=== PATIENT | female | born 1955 | race Caucasian/White ===

== ENCOUNTER 2016-11-09 18:59 | Emergency (ER) | payer OTHER ==
[2016-11-09] MEDS ORDERED: METOCLOPRAMIDE HCL 5 MG/ML VIAL IV ONE (19:32)
[2016-11-09] MEDS ORDERED: NORMAL SALINE 1,000 ML IV ONE (19:32)
[2016-11-09] MEDS ORDERED: METOCLOPRAMIDE HCL 5 MG/ML VIAL ONE (19:44)
[2016-11-09 19:49] LABS: Hematocrit 28.8 % (37.0-47.0); Hemoglobin 9.3 gm/dL (12.5-16.0); Mean Cell Volume 84.5 fl (78-100); Mean Corpuscular Hemoglobin 27.3 pg (27-31); Mean Corpuscular Hgb Conc 32.3 g/dl (32-36); Mean Platelet Volume 9.3 fl (6.0-9.5); Platelet Count 335 K/mm3 (150-450); Red Blood Count 3.41 M/mm3 (4.2-5.4); Red Cell Distribution Width 13.5 % (11.5-14.0); White Blood Count 10.7 K/mm3 (4.0-10.5)
[2016-11-09 19:51] LABS: Total Cells Counted 100
[2016-11-09 20:07] LABS: Albumin * 3.1 gm/dl (3.4-5.0); Anion Gap 15.3 mmol/L (6.8-13.8); BUN/Creatinine Ratio 12.2 (9.0-21.6); Bilirubin, Total 0.4 mg/dL (0.0-1.1); Calcium * 8.6 mg/dL (7.9-10.9); Carbon Dioxide 21.4 mmol/L (24-32.6); Potassium 3.7 mmol/L (3.4-4.6); Total Protein 6.8 gm/dL (6.2-8.2)
[2016-11-09 20:15] LABS: Band 14 % (0-2.0); Eosinophil 3 % (0-3); Lymphocyte 33 % (20-51); Monocyte 3 % (0-9); Neutrophil 47 % (42-75); Platelet Estimate Normal (NORMAL)
[2016-11-09 20:16] LABS: RBC Morphology Normal (NORMAL)
[2016-11-09 20:20] LABS: CRP 25.5 mg/dL (0.0-0.9)
--- NOTE | 2016-11-09 20:37 | ERNOTE ---
<Magdalena Andrade - Last Filed: 11/09/16 21:43> Abdominal HPI - Narrative Date of Service: 11/09/16 - General Chief Complaint: General Assessment Time Seen by Provider: 11/09/16 19:16 Source: patient, RN notes reviewed Exam Limitations: no limitations - Immun/Allergies/Home Medications Immunizatons: IMMUNIZATION HX Immunizations Up to Date Yes History of Influenza Vaccine No Hx Pneumococcal Vaccination No Allergies/Adverse Reactions: Allergies albuterol Allergy (Severe, Verified 11/09/16 19:13) Swelling of Throat Allergy to Ventolin naproxen [From Naprosyn] Allergy (Intermediate, Verified 11/09/16 19:13) Swelling (Other) Swelling of hands, itchy ondansetron HCl [From Zofran (as hydrochloride)] Allergy (Intermediate, Verified 11/09/16 19:13) Swelling (Other) meperidine HCl [From Demerol] Allergy (Mild, Verified 11/09/16 19:13) Itching Home Medications: HOME MEDICATIONS ALPRAZolam [Xanax] 0.5 mg PO TID PRN 08/28/15 [Last Taken Unknown] Furosemide [Lasix] 80 mg PO DAILY 08/28/15 [Last Taken Unknown] Metoprolol Tartrate 100 mg PO BIDWM 08/28/15 [Last Taken Unknown] Omeprazole [Prilosec] 40 mg PO DAILY 08/28/15 [Last Taken Unknown] Potassium Chloride [K-Dur] 20 meq PO BID 08/28/15 [Last Taken Unknown] amLODIPine BESYLATE [Norvasc] 10 mg PO DAILY 08/28/15 [Last Taken Unknown] FLUoxetine HCL [Prozac] 20 mg PO DAILY 11/20/15 [Last Taken Unknown] Levothyroxine Sodium [Synthroid] 100 mcg PO DAILY@0700 11/20/15 [Last Taken Unknown] Dicyclomine HCl [Bentyl] 10 mg PO TID PRN #7 capsule 11/09/16 [Last Taken Unknown] - History of Present Illness Narrative: 61 y/o female ambulatory to the ED for diarrhea that began 2 days ago. She has also had cramping, bloating and nausea but no vomiting. She states that if she attempted to eat solid food that she would likely vomit. She has been taking Immodium since yesterday without improvement in the diarrhea. She denies having any blood in her stools. She denies any sick contacts. She has not been on an antibiotic recently. She has had diverticulitis in the past and reports that the symptoms were the same. Date (Duration): 11/07/16 Quality: moderate, cramping Activities at Onset: none Prior Abdominal Problems: Present: similar symptoms Prior Treatment: Absent: recently seen, treated by physician, currently on antibiotics Review of Systems - Review of Systems Constitutional: Present: fatigue, malaise. Absent: fever, chills EYE: Present: no symptoms reported ENT: Present: no symptoms reported Respiratory: Absent: shortness of breath, cough Cardiology: Absent: chest pain, syncope Gastrointestinal/Abdominal: Present: nausea, diarrhea, abdominal pain, eating less, drinking less. Absent: vomiting Genitourinary: Absent: dysuria, hematuria, decreased urinary output Musculoskeletal: Absent: back pain, joint pain Skin: Absent: rash, lesions Neurological: Absent: headache, dizziness/light-headedness Endocrine: Present: no symptoms reported Hematologic/Lymphatic: Absent: easy bruising, easy bleeding Psych: Present: no symptoms reported - Patient's Past Medical History Patient History - Medical: Anxiety, Depression, GERD, Hypothyroidism, Other - Diverticulitis Patient History - Cardiac/Respiratory: Asthma, Hypertension Patient History - Cancer: No Hx of Cancer Patient History - Surgical Procedures: Cholecystectomy, Colonoscopy, Hysterectomy, Total Knee Replacement, T & A, Other Patient History - Other: None LMP (females 10-50): hysterectomy - Family History Mother Family History - Medical: Family History - Cardiac/Respiratory: CVA/Stroke Brother Family History - Medical: Seizures Father Family History - Medical: Cataracts - Social History Living Situations: home Abuse History: No History of abuse Psych History: Hx of Anxiety, Hx of Depression Smoking Status: Never smoker Do you dip or chew tobacco: No Alcohol Use: none Drug Use: benzodiazepine - Immunizations Immunizations Up to Date: Yes Hx Pneumococcal Vaccination: No History of Influenza Vaccine: No Physical Exam - Physical Exam General Appearance: Present: alert, obese, other - appears to not feel well Neck: Present: normal inspection, nontender, supple Respiratory: Present: no respiratory distress, normal breath sounds, no accessory muscle use, lungs clear Cardiovascular/Chest: Present: regular rate, rhythm, no murmur, normal peripheral pulses Gastrointestinal/Abdominal: Present: normal bowel sounds, soft, tenderness - moderate diffuse, distended Back Exam: Present: normal inspection, no CVA tenderness Extremity Exam: Present: normal inspection, normal range of motion Neurological Exam: Present: alert, oriented, normal mood/affect, no motor/ sensory deficits Skin Exam: Present: warm/dry, pallor ED Progress - Results and Orders Patient's Lab Results:: I have reviewed the patient's lab results. - Vital Signs Patient's Vital Signs:: I have reviewed the patient's vital signs. Vital Signs: Vital Signs 11/09/16 11/09/16 19:05 19:49 Temperature 36.7 C Pulse Rate 84 78 Respiratory 22 H 20 Rate Blood Pressure 135/72 133/69 O2 Sat by Pulse 96 96 Oximetry - X-Ray X-Ray #1 X-Ray: abdomen Interpretation: Reviewed by me X-ray Comments: FINDINGS: Abdomen Flat W/ Upright *: No subdiaphragmatic free air. No abnormal dilation of large or small bowel. Scattered air-fluid levels are noted within the colonic segments, with colonic bowel wall thickening suggested at the level of the ascending colon/hepatic flexure. Patient has bilateral symmetric probable abdominal wall calcifications, stable. Rounded pelvic calcifications likely phleboliths, stable. Small rounded calcification seen lateral to the lower lumbar spine on the right side, also stable. Osseous structures are intact. Patient has surgical clips in the left upper quadrant. IMPRESSION: 1. Abnormal bowel gas pattern suggestive of colitis. 2. Additional comments are as above. Electronically signed by Sharlene Perez M.D.. - Progress/Reassessment Chief Complaint: General Assessment Progress:: Unchanged Progress Note-Subjective: 11/09/16 21:44 Nausea did not improve with Reglan but she did get some relief with Phenergan, tolerating oral contrast for abdominal CT well. Pain improved with one dose of morphine. - Transfer of Care Physician Sign Out: Magdalena Andrade Receiving Physician: Ananth Francois Pending Results: CT/MRI results Expected Disposition: Discharge Departure - Departure Clinical Impression: Diarrhea Qualifiers: Diarrhea type: unspecified type Qualified Code(s): R19.7 - Diarrhea, unspecified Disposition: Home self-care Condition: Good Instructions: Diarrhea, Adult, [id number] Additional Instructions: use the dicyclomine as needed for severe abdominal cramping. Drink plenty of fluids to stay hydrated. See your primary care doctor if not improving Prescriptions: Dicyclomine HCl [Bentyl] 10 mg PO TID PRN #7 capsule PRN Reason: Pain <Ananth Francois - Last Filed: 11/15/16 22:52> Abdominal HPI - Immun/Allergies/Home Medications Immunizatons: IMMUNIZATION HX Immunizations Up to Date Yes History of Influenza Vaccine No Hx Pneumococcal Vaccination No ED Progress - Vital Signs Vital Signs: Vital Signs 11/09/16 11/09/16 11/09/16 19:05 19:49 20:47 Temperature 36.7 C Pulse Rate 84 78 75 Respiratory 22 H 20 18 Rate Blood Pressure 135/72 133/69 139/69 O2 Sat by Pulse 96 96 96 Oximetry 11/09/16 11/09/16 11/09/16 21:42 22:50 23:45 Temperature Pulse Rate 80 72 82 Respiratory 18 18 18 Rate Blood Pressure 146/72 148/70 136/79 O2 Sat by Pulse 96 97 97 Oximetry - CT/Ultrasound CT/Ultrasound Narrative: CT abd/ pelvis with contrast: 14 mm nodule of the L adrenal gland 3.6 cm cyst of left kidney
[2016-11-09] MEDS ORDERED: DIATRIZOATE MEGLUMINE, SODIUM 30 ML BTL ONE ×2 (20:41→21:45)
[2016-11-09] MEDS ORDERED: DIATRIZOATE MEGLUMINE, SODIUM 30 ML BTL PO ONE ×2 (20:41→21:44)
[2016-11-09] MEDS ORDERED: PROMETHAZINE HCL 25 MG in DEXTROSE 5 % IN WATER 50 ML IV ONE ×2 (20:44)
[2016-11-09] MEDS ORDERED: MORPHINE SULFATE 2 MG/ML DISP.SYRIN IV ONE (20:44)
[2016-11-09] MEDS ORDERED: MORPHINE SULFATE 2 MG/ML DISP.SYRIN ONE (20:46)
[2016-11-09] MEDS ORDERED: diphenhydrAMINE HCL 50 MG/ML VIAL IV ONE (22:42)
[2016-11-09] MEDS ORDERED: diphenhydrAMINE HCL 50 MG/ML VIAL ONE (22:46)
[2016-11-09] MEDS ORDERED: DICYCLOMINE HCL 10 MG CAPSULE PO ONE (23:56)
[2016-11-09] MEDS ORDERED: DICYCLOMINE HCL 20 MG TABLET ONE (23:59)
[2016-11-10 00:18] VITALS: BP 130/73
== END 2016-11-10 00:16 | disposition home or self-care (01) ==
LOC: ER 18:59
DX: R19.7 Diarrhea, unspecified (principal); F41.8 Other specified anxiety disorders; K21.9 Gastro-esophageal reflux disease without esophagitis; E03.9 Hypothyroidism, unspecified; I10 Essential (primary) hypertension

== ENCOUNTER 2020-01-01 11:22 | Inpatient (IN) ==
[2020-01-01] MEDS ORDERED: NORMAL SALINE 1,000 ML IV ONE (12:46)
[2020-01-01] MEDS ORDERED: ALBUTEROL SULFATE/IPRATROPIUM 3 ML NEBU IH ONE (12:48)
[2020-01-01] MEDS ORDERED: METHYLPREDNISOLONE SOD SUCC/PF 125 MG/2 ML VIAL IV ONE (12:53)
[2020-01-01 13:13] LABS: Hematocrit 40.5 % (37.0-47.0); Hemoglobin 13.7 gm/dL (12.5-16.0); Mean Cell Volume 90.4 fl (78-100); Mean Corpuscular Hemoglobin 30.6 pg (27-31); Mean Corpuscular Hgb Conc 33.8 g/dl (32-36); Mean Platelet Volume 9.5 fl (8-12.5); Neutrophil % 60.6 % (42-75.0); Platelet Count 435 K/mm3 (150-450); Red Blood Count 4.48 M/mm3 (4.2-5.4); Red Cell Distribution Width 13.6 % (11.5-14.0); White Blood Count 11.6 K/mm3 (4.0-10.5)
[2020-01-01] MEDS ORDERED: PROMETHAZINE HCL 25 MG TABLET PO ONE (13:15)
[2020-01-01 13:31] LABS: ALT 42 U/L (19-67); AST 82 U/L (0-48); Albumin * 4.8 gm/dl (3.4-5.0); Alkaline Phosphatase * 78 U/L (50-170); Anion Gap 15.6 mmol/L (6.8-13.8); BUN/Creatinine Ratio 6.9 (9.0-21.6); Bilirubin, Total 0.5 mg/dL (0.0-1.1); Blood Urea Nitrogen 8 mg/dL (3-23); Ca. Corrected For Albumin 8.6 mg/dL (8.4-10.2); Calcium * 9.6 mg/dL (7.9-10.9); Carbon Dioxide 23.6 mmol/L (24-32.6); Chloride 85 mmol/L (97-106); Glucose * 132 mg/dL (70-110); Potassium 4.2 mmol/L (3.4-4.6); Total Protein 8.4 gm/dL (6.2-8.2); Troponin I Less than 0.017 ng/mL (0.00-0.10)
[2020-01-01 13:50] LABS: Sodium 120 mmol/L (132-142)
[2020-01-01 14:09] LABS: Urine Bilirubin Negative (NEGATIVE); Urine Blood 25 /ul (NEGATIVE); Urine Ketone Negative (NEGATIVE); Urine Nitrite Negative (NEGATIVE); Urine Protein 30 mg/dL (NEGATIVE); Urine Specific Gravity 1.015 SP.GR. (1.005-1.010); Urine Urobilinogen Normal (NORMAL); Urine pH 7.5 pH (5.0-7.0)
[2020-01-01 14:15] LABS: Urine Appearance Clear (CLEAR); Urine Color Yellow; Urine WBC None Seen /hpf (0-5)
[2020-01-01 14:16] LABS: Urine Bacteria None Seen; Urine RBC 0-5 /hpf (0-5)
--- NOTE | 2020-01-01 14:54 | ERNOTE ---
ENT HPI Date of Service: 01/01/20 Presenting Symptoms: other - sore throat, weakness Time Seen by Provider: 01/01/20 12:26 Source: patient Exam Limitations: no limitations - Immun/Allergies/Home Medications Immunizations: IMMUNIZATION HX Immunizations Up to Date Yes History of Influenza Vaccine No Hx Pneumococcal Vaccination No Allergies/Adverse Reactions: Allergies Allergy/AdvReac Type Severity Reaction Status Date / Time naproxen [From Naprosyn] Allergy Intermediate Swelling Verified 01/01/20 11:24 (Other) ondansetron HCl Allergy Intermediate Swelling Verified 01/01/20 11:24 [From Zofran (as (Other) hydrochloride)] meperidine HCl [From Demerol] Allergy Mild Itching Verified 01/01/20 11:24 Home Medications: HOME MEDICATIONS Omeprazole [Prilosec] 40 mg PO DAILY 08/28/15 [Last Taken Unknown] albuterol sulfate 90 mcg/actuation aerosol inhaler 2 puff IH Q6H PRN 12/14/17 [Last Taken Unknown] furosemide 80 mg tablet 40 mg PO DAILY tab 12/14/17 [Last Taken Unknown] metoprolol tartrate 100 mg tablet 100 mg PO BIDWM #60 tab 03/22/18 [Last Taken Unknown] levothyroxine 150 mcg tablet 150 mcg PO DAILY #30 tab 06/08/18 [Last Taken Unknown] ibuprofen 200 mg tablet 800 mg PO TID-QID PRN tab 06/27/18 [Last Taken Unknown] amlodipine 10 mg tablet See Rx Instructions .ROUTE .COMPLEX #90 unspecified 08/30/18 [Last Taken Unknown] lisinopril 10 mg tablet 10 mg PO DAILY 11/21/18 [Last Taken Unknown] potassium chloride 20 mEq tablet,extended release(part/cryst) See Rx Instructions .ROUTE .COMPLEX #60 unspecified 09/18/19 [Last Taken Unknown] buspirone 15 mg tablet 15 mg PO TID #90 tab 10/21/19 [Last Taken Unknown] zolpidem 10 mg tablet 10 mg PO HS PRN #30 tab 10/21/19 [Last Taken Unknown] propranolol 20 mg tablet 20 mg PO TID PRN #90 tab 11/21/19 [Last Taken Unknown] fluoxetine 20 mg capsule 60 mg PO DAILY #90 cap 12/19/19 [Last Taken Unknown] alprazolam 1 mg tablet 1 mg PO TID PRN #90 tab 12/27/19 [Last Taken Unknown] - History of Present Illness Narrative: patient presents to the ED with several complaints. She has been having ST. This was evaluated with negative strep and Covid test requested. When she went for the Covid test another strep test was positive so ABx started (Z-Arslan?) and Covid testing negative by her report. SHe has had cough, sore throat and now progressive weakness. Decreased appetite. No CP. Occasional low abdominal pains. No focal weaknes, generalized weakness noted. Nausea. Feels fatigued. Severity: Present: moderate ENT Location: Present: throat Prearrival Treatment: Present: no prearrival treatment Modifying Factors - Improves: Reports: nothing Modifying Factors - Worsens: Reports: other - swallowing Associated Symptoms - ENT: Reports: malaise, poor fluid intake. Denies: voice change, drooling, headache, foreign body Prior Treament: Reports: treated by physician. Denies: currently on antibiotics Review of Systems - Review of Systems Constitutional: Present: fatigue, malaise. Absent: fever EYE: Present: no symptoms reported ENT: Present: See HPI Respiratory: Present: See HPI Cardiology: Absent: chest pain Gastrointestinal/Abdominal: Present: See HPI Genitourinary: Absent: dysuria Musculoskeletal: Present: other - no injury Skin: Absent: rash Neurological: Present: See HPI All Other Systems: All systems neg except as marked Medical History (Last Reviewed 01/01/20 @ 14:50 by Tylor Gross MD) Major depression (Chronic) Generalized anxiety disorder (Chronic) Borderline personality disorder (Chronic) Anxiety Onset Date: ~08/01/13 Asthma Onset Date: Unknown Bipolar affective disorder, currently depressed, moderate Onset Date: ~05/07/15 Bipolar disorder Onset Date: ~09/25/14 Borderline personality disorder Onset Date: ~08/01/13 Bronchitis, chronic Onset Date: Unknown GERD (gastroesophageal reflux disease) Onset Date: Unknown Hypertension Onset Date: Unknown Hypothyroidism Onset Date: Unknown Insomnia Onset Date: ~10/08/13 Insomnia due to other mental disorder Onset Date: ~05/07/15 Major depression, recurrent Onset Date: Unknown Major depressive disorder, recurrent episode, moderate Onset Date: ~05/06/16 Nightmares Onset Date: Unknown PTSD (post-traumatic stress disorder) Onset Date: ~09/22/16 Paranoia Onset Date: ~10/03/13 Postsurgical hypothyroidism Onset Date: Unknown Schizoaffective disorder Onset Date: ~04/25/14 Hand fracture, right (Resolved) Onset Date: ~06/2018 Surgical History: Surgical History (Last Reviewed 01/01/20 @ 14:50 by Tylor Gross MD) History of cholecystectomy Onset Date: ~1976 History of hysterectomy Onset Date: ~1979 History of thyroidectomy Onset Date: ~01/2013 S/P gastroplasty Onset Date: ~1990 Family History: Family History (Last Reviewed 01/01/20 @ 14:50 by Tylor Gross MD) Brother Hypertension Seizure Thyroid disease Mother Hypertension FH: mental illness CVA (cerebral vascular accident) Father Heart disease Social History: (Last Reviewed 01/01/20 @ 14:50 by Tylor Gross MD) Social History: Marital status: / lives independently: Yes current occupational status: unemployed current occupation: homemaker Highest education level completed: high school graduate Service: No Tobacco: Smoking Status: Never smoker Alcohol: alcohol intake: never Substance Use: substance use type: does not use Dietary Habits: caffeine: Yes Physical Exam - Physical Exam General Appearance: Present: alert, other - no acute distress but does not appear to feel well. Head Exam: Present: normal inspection, no evidence of injury Eye Exam: Normal inspection: bilateral, PERRL: bilateral Ears, Nose, Throat: Present: pharyngeal erythema, dry mucous membranes, other - no evidence of [employer], RPA or epiglottitis.. Absent: pharyngeal swelling, tonsillar exudate, tonsillar swelling Respiratory: Present: no respiratory distress, other - faint scattered wheezes in geno bases Cardiovascular/Chest: Present: regular rate, rhythm Gastrointestinal/Abdominal: Present: normal bowel sounds, nontender, soft Back Exam: Absent: CVA tenderness (R), CVA tenderness (L) Extremity Exam: Present: normal range of motion Neurological Exam: Present: alert, no motor/sensory deficits Skin Exam: Present: normal color, warm/dry Progress - Results and Orders Patient's Lab Results:: I have reviewed the patient's lab results. - Vital Signs Patient's Vital Signs:: I have reviewed the patient's vital signs. Vital Signs: Vital Signs 01/01/20 11:22 01/01/20 14:19 01/01/20 14:34 Temperature 36.1 C Pulse Rate 59 L 54 L 55 L Respiratory Rate 18 15 15 Blood Pressure 158/81 H 148/85 155/94 H O2 Sat by Pulse Oximetry 100 98 99 - EKG EKG #1 EKG read: Interp. by me EKG Comments: Sinus Bradycardia rate 55. Non-specific ST/T wave changes, no STEMI noted. - X-Ray X-Ray #1 X-Ray: chest Interpretation: Interp. by me X-ray Comments: I personally reviewed CXR images as well as official radiology report. - Progress/Reassessment Chief Complaint: Sore Throat Progress Note-Subjective: 01/01/20 14:51 IV fluids initiated. Steroids for the few wheezes with her COPD. No overt CHF. Does have significant hyponatremia. Clinically dehydrated. D/W Dr Nolan then with Dr Paredes who will admit. D/W Case management, she qualifies for observation. Discussed with patient, she is agreeable. Departure Clinical Impression: Pharyngitis, Hyponatremia, Generalized weakness, Bronchitis - Departure Disposition: Still a patient Condition: Stable Referrals: Mark Nolan DO [Primary Care Provider] -
[2020-01-01] MEDS: PROMETHAZINE HCL 25 MG TABLET PO PRN (17:29)
[2020-01-01] MEDS ORDERED: FLU VACC QS2020-21(6MOS UP)/PF 60 MCG/0.5 ML SYRINGE IM ONE (18:00)
--- NOTE | 2020-01-01 18:16 | HP ---
Chief Complaint - Chief Complaint Date of Service: 01/01/20 Time of Service: 18:16 Chief Complaint: doesnt feel well, st History of Present Illness: 64-year-old female presented to the hospital today with roughly a week's worth of not feeling well, sore throat, cough. Patient tested previously for strep throat which was negative. She then went and was tested for COVID which was negative per patient. She was retested for strep at that time and was found to be positive and started on what she thinks was a Z-Arslan. Today in the ER her strep was negative. She has felt fatigued, had nausea, feverish and chills. She was found to have a sodium of 120. She had a mildly elevated white count 11.6, no shift. Rest of her blood work was fairly benign. Chest x-ray showed cardiomegaly but no other acute cardiopulmonary process. Patient was admitted due to hyponatremia which is likely what is making her feel fairly crappy. She was given a bolus of normal saline in the ER. Patient is a fairly significant psych history. States she is compliant with her medications. Today she endorses fatigue, sore throat, nonproductive cough. She denies chest pain or shortness of breath. She does feel achy. Medical History (Last Reviewed 01/01/20 @ 14:50 by Tylor Gross MD) Major depression (Chronic) Generalized anxiety disorder (Chronic) Borderline personality disorder (Chronic) Anxiety Onset Date: ~08/01/13 Asthma Onset Date: Unknown Bipolar affective disorder, currently depressed, moderate Onset Date: ~05/07/15 Bipolar disorder Onset Date: ~09/25/14 Borderline personality disorder Onset Date: ~08/01/13 Bronchitis, chronic Onset Date: Unknown GERD (gastroesophageal reflux disease) Onset Date: Unknown Hypertension Onset Date: Unknown Hypothyroidism Onset Date: Unknown Insomnia Onset Date: ~10/08/13 Insomnia due to other mental disorder Onset Date: ~05/07/15 Major depression, recurrent Onset Date: Unknown Major depressive disorder, recurrent episode, moderate Onset Date: ~05/06/16 Nightmares Onset Date: Unknown PTSD (post-traumatic stress disorder) Onset Date: ~09/22/16 Paranoia Onset Date: ~10/03/13 Postsurgical hypothyroidism Onset Date: Unknown Schizoaffective disorder Onset Date: ~04/25/14 Hand fracture, right (Resolved) Onset Date: ~06/2018 Surgical History: Surgical History (Last Reviewed 01/01/20 @ 14:50 by Tylor Gross MD) History of cholecystectomy Onset Date: ~1976 History of hysterectomy Onset Date: ~1979 History of thyroidectomy Onset Date: ~01/2013 S/P gastroplasty Onset Date: ~1990 Family History: Family History (Last Reviewed 01/01/20 @ 14:50 by Tylor Gross MD) Brother Hypertension Seizure Thyroid disease Mother Hypertension FH: mental illness CVA (cerebral vascular accident) Father Heart disease Social History: (Last Reviewed 01/01/20 @ 14:50 by Tylor Gross MD) Social History: Marital status: / lives independently: Yes current occupational status: unemployed current occupation: homemaker Highest education level completed: high school graduate Service: No Tobacco: Smoking Status: Never smoker Alcohol: alcohol intake: never Substance Use: substance use type: does not use Dietary Habits: caffeine: Yes Review Of Systems (GEN) - Review of Systems Generalized/Overall Review: Present: Weakness, Chills, Fever, Fatigue EENTM: Present: Nose Congestion, Throat Pain. Absent: Ear Pain Respiratory: Present: Cough. Absent: Shortness of Breath, Wheezing Cardiac: Absent: Chest Pain, Edema Abdominal: Present: Nausea, Abdominal Pain. Absent: Vomiting Genitourinary: Present: No Symptoms Reported Musculoskeletal: Present: Muscle Pain - achy Neurological: Present: No Symptoms Reported Skin: Present: No Symptoms Reported Endocrine: Present: No Symptoms Reported Immunizations: IMMUNIZATION HX Immunizations Up to Date Yes History of Influenza Vaccine No Hx Pneumococcal Vaccination No Allergies/Adverse Reactions: Allergies Allergy/AdvReac Type Severity Reaction Status Date / Time naproxen [From Naprosyn] Allergy Intermediate Swelling Verified 01/01/20 11:24 (Other) ondansetron HCl Allergy Intermediate Swelling Verified 01/01/20 11:24 [From Zofran (as (Other) hydrochloride)] meperidine HCl [From Demerol] Allergy Mild Itching Verified 01/01/20 11:24 Home Medications: HOME MEDICATIONS metoprolol tartrate 100 mg tablet 100 mg PO BIDWM #60 tab 03/22/18 [Last Taken Unknown] buspirone 15 mg tablet 15 mg PO TID #90 tab 10/21/19 [Last Taken Unknown] zolpidem 10 mg tablet 10 mg PO HS PRN #30 tab 10/21/19 [Last Taken Unknown] propranolol 20 mg tablet 20 mg PO TID PRN #90 tab 11/21/19 [Last Taken Unknown] fluoxetine 20 mg capsule 60 mg PO DAILY #90 cap 12/19/19 [Last Taken Unknown] Alprazolam 0.5 mg PO QID PRN 01/01/20 [Last Taken Unknown] Amlodipine Besylate 10 mg PO DAILY 01/01/20 [Last Taken Unknown] Levothyroxine Sodium [Synthroid] 175 mcg PO DAILY 01/01/20 [Last Taken Unknown] Potassium Chloride [Klor-Con M20] 20 meq PO DAILY 01/01/20 [Last Taken Unknown] Valsartan 320 mg PO DAILY 01/01/20 [Last Taken Unknown] Exam - Exam Vital Signs: Vital Signs - Last Taken Temp 36.6 C 01/01/20 16:24 Pulse 55 L 01/01/20 17:25 Resp 20 01/01/20 16:24 BP 147/94 H 01/01/20 16:24 Pulse Ox 97 01/01/20 16:24 Constitutional: Present: Alert, Oriented x3, Cooperative, Elderly, Morbidly obese ENT Exam: Present: hearing grossly normal, pharyngeal erythema. Absent: tonsillar exudate Eye Exam: bilateral eye: normal inspection, EOMI Neck: Present: non-tender, supple. Absent: lymphadenopathy (R), lymphadenopathy (L) Respiratory: Present: lungs clear, normal breath sounds Cardiovascular/Chest: Present: regular rate, rhythm. Absent: no murmur Abdomen: Present: soft, nontender, no rebound tenderness Skin Exam: Present: normal color, warm/dry Appearance: Present: appropriate appearance, appropriate insight Eye contact: Present: cooperative, good eye contact Thoughts: Present: normal thought pattern, normal mood /affect Diagnostic Studies: Abnormal Lab Results 01/01/20 01/01/20 01/01/20 Range/Units 13:03 13:03 14:04 WBC 11.6 H (4.0-10.5) K/mm3 Immature Gran # (Auto) 0.04 H (0.000-0.0310) K/mm3 Neutrophils # 7.0 H (1.3-6.0) K/mm3 Lymphocytes # 3.69 H (1.5-3.5) k/mm3 Sodium 120 L (132-142) mmol/L Plasma Sodium 121 L (130-142) mmol/L Chloride 85 L (97-106) mmol/L Carbon Dioxide 23.6 L (24-32.6) mmol/L Anion Gap 15.6 H (6.8-13.8) mmol/L Est GFR (Non-Af Amer) 50 L (60-130) mL/min BUN/Creatinine Ratio 6.9 L (9.0-21.6) Random Glucose 132 H (70-110) mg/dL AST 82 H (0-48) U/L Total Protein 8.4 H (6.2-8.2) gm/dL Urine Protein 30 H (NEGATIVE) mg/dL Urine Blood 25 H (NEGATIVE) /ul Laboratory Results WBC 11.6 K/mm3 (4.0-10.5) H 01/01/20 13:03 RBC 4.48 M/mm3 (4.2-5.4) 01/01/20 13:03 Hgb 13.7 gm/dL (12.5-16.0) 01/01/20 13:03 Hct 40.5 % (37.0-47.0) 01/01/20 13:03 MCV 90.4 fl (78-100) 01/01/20 13:03 MCH 30.6 pg (27-31) 01/01/20 13:03 MCHC 33.8 g/dl (32-36) 01/01/20 13:03 RDW 13.6 % (11.5-14.0) 01/01/20 13:03 Plt Count 435 K/mm3 (150-450) 01/01/20 13:03 MPV 9.5 fl (8-12.5) 01/01/20 13:03 Immature Gran % (Auto) 0.30 % (0.001-0.429) 01/01/20 13:03 Immature Gran # (Auto) 0.04 K/mm3 (0.000-0.0310) H 01/01/20 13:03 Neutrophils % 60.6 % (42-75.0) 01/01/20 13:03 Lymphocytes % 31.8 % (20-51) 01/01/20 13:03 Monocytes % 4.5 % (0.0-9) 01/01/20 13:03 Eosinophils % 2.4 % (0.0-3.0) 01/01/20 13:03 Basophils % 0.4 % (0.0-1.0) 01/01/20 13:03 Nucleated RBC % 0.0 k/mm3 (0-1) 01/01/20 13:03 Neutrophils # 7.0 K/mm3 (1.3-6.0) H 01/01/20 13:03 Lymphocytes # 3.69 k/mm3 (1.5-3.5) H 01/01/20 13:03 Monocytes # 0.5 k/mm3 (0.0-1.0) 01/01/20 13:03 Eosinophils # 0.3 k/mm3 (0.0-0.7) 01/01/20 13:03 Absolute Basophils 0.1 k/mm3 (0.0-0.1) 01/01/20 13:03 Sodium 120 mmol/L (132-142) L 01/01/20 13:03 Plasma Sodium 121 mmol/L (130-142) L 01/01/20 13:03 Potassium 4.2 mmol/L (3.4-4.6) 01/01/20 13:03 Chloride 85 mmol/L (97-106) L 01/01/20 13:03 Carbon Dioxide 23.6 mmol/L (24-32.6) L 01/01/20 13:03 Anion Gap 15.6 mmol/L (6.8-13.8) H 01/01/20 13:03 BUN 8 mg/dL (3-23) 01/01/20 13:03 Creatinine 1.16 mg/dL (0.4-1.4) 01/01/20 13:03 Est GFR (Non-Af Amer) 50 mL/min (60-130) L 01/01/20 13:03 BUN/Creatinine Ratio 6.9 (9.0-21.6) L 01/01/20 13:03 Random Glucose 132 mg/dL (70-110) H 01/01/20 13:03 Lactic Acid, Venous 1.6 mmol/L (0.4-2.0) 01/01/20 13:03 Calcium 9.6 mg/dL (7.9-10.9) 01/01/20 13:03 Calcium Adj for Albumin 8.6 mg/dL (8.4-10.2) 01/01/20 13:03 Total Bilirubin 0.5 mg/dL (0.0-1.1) 01/01/20 13:03 AST 82 U/L (0-48) H 01/01/20 13:03 ALT 42 U/L (19-67) 01/01/20 13:03 Alkaline Phosphatase 78 U/L (50-170) 01/01/20 13:03 Troponin I Less than 0.017 ng/mL (0.00-0.10) 01/01/20 13:03 B-Natriuretic Peptide 187 pg/mL (5-325) 01/01/20 13:03 Total Protein 8.4 gm/dL (6.2-8.2) H 01/01/20 13:03 Albumin 4.8 gm/dl (3.4-5.0) 01/01/20 13:03 Urine Color Yellow 01/01/20 14:04 Urine Appearance Clear (CLEAR) 01/01/20 14:04 Urine pH 7.5 pH (5.0-7.0) 01/01/20 14:04 Ur Specific [place] 1.015 SP.GR. (1.005-1.010) 01/01/20 14:04 Urine Protein 30 mg/dL (NEGATIVE) H 01/01/20 14:04 Urine Glucose (UA) Negative mg/dL (NEGATIVE) 01/01/20 14:04 Urine Ketones Negative mg/dL (NEGATIVE) 01/01/20 14:04 Urine Blood 25 /ul (NEGATIVE) H 01/01/20 14:04 Urine Nitrate Negative (NEGATIVE) 01/01/20 14:04 Urine Bilirubin Negative mg/dl (NEGATIVE) 01/01/20 14:04 Prot Sulfosalicylic Acd Negative mg/dL (0) 01/01/20 14:04 Urine Urobilinogen Normal EU/dl (NORMAL) 01/01/20 14:04 Ur Leukocyte Esterase Negative /ul (NEGATIVE) 01/01/20 14:04 Urine RBC 0-5 /hpf (0-5) 01/01/20 14:04 Urine WBC None seen /hpf (0-5) 01/01/20 14:04 Ur Epithelial Cells 0-5 /hpf (0-5) 01/01/20 14:04 Urine Bacteria None seen (NONE) 01/01/20 14:04 Urine Culture Comments No culture indicated 01/01/20 14:04 Monoscreen Negative (NEGATIVE) 01/01/20 13:03 Group A Strep Rapid Negative (NEGATIVE) 01/01/20 13:23 Assessment/Plan - Narrative Narrative: Patient placed in observation for hyponatremia. She likely will require more than 1 day stay to correct this but will repeat BMP in the morning to see. Continue normal saline at 125 an hour following bolus. Consider salt tablets if correcting slowly in the future. Patient with history of psychiatric issues, home medications restarted. Patient currently feels fine and is acting appropriate. Patient vital signs are stable and she is afebrile. Patient started on general diet. SCDs for DVT prophylaxis. Encourage ambulation. Repeat lab work in the morning will determine course of treatment plan in the future, will adjust as needed. Nurse to call with questions or concerns. - Assessment/Plan (1) Hyponatremia Problem: Acute (2) Generalized weakness Problem: Acute (3) Pharyngitis Problem: Acute (4) Major depression Problem: Chronic Qualifiers: Major depression recurrence: recurrent Active/Remission status: currently active Major depression episode severity: moderate Qualified Code(s): F33.1 - Major depressive disorder, recurrent, moderate (5) Borderline personality disorder Problem: Chronic
[2020-01-01] MEDS: NORMAL SALINE 1,000 ML IV SCH ×2 (18:33→22:40)
[2020-01-01] MEDS: busPIRone HCL 5 MG TABLET PO SCH (21:16)
[2020-01-01] MEDS: ALPRAZolam 1 MG TABLET PO PRN (21:17)
[2020-01-02] MEDS: ZOLPIDEM TARTRATE 10 MG TABLET PO PRN ×2 (01:24→22:36)
[2020-01-02] MEDS: ACETAMINOPHEN 500 MG TABLET PO PRN ×2 (01:24→08:10)
[2020-01-02] MEDS: NORMAL SALINE 1,000 ML IV SCH ×3 (01:29→18:43)
[2020-01-02] MEDS: LEVOTHYROXINE SODIUM 175 MCG TABLET PO SCH (06:34)
[2020-01-02 07:32] LABS: BUN/Creatinine Ratio 7.5 (9.0-21.6); Calcium * 9.2 mg/dL (7.9-10.9); Carbon Dioxide 21.9 mmol/L (24-32.6); Estimated Creat Clear 26.4; Potassium 3.9 mmol/L (3.4-4.6)
[2020-01-02] MEDS: PROMETHAZINE HCL 25 MG TABLET PO PRN (08:10)
[2020-01-02] MEDS: METOPROLOL TARTRATE 100 MG TABLET PO SCH ×2 (08:39→16:58)
[2020-01-02] MEDS: busPIRone HCL 5 MG TABLET PO SCH ×3 (08:39→16:59)
[2020-01-02] MEDS: FLUoxetine HCL 20 MG CAPSULE PO SCH (08:40)
[2020-01-02] MEDS: amLODIPine BESYLATE 10 MG TABLET PO SCH (08:40)
[2020-01-02] MEDS: LOSARTAN POTASSIUM 50 MG TABLET PO SCH (08:53)
[2020-01-02] MEDS: ALPRAZolam 1 MG TABLET PO PRN ×2 (08:56→20:27)
[2020-01-02] MEDS ORDERED: VALSARTAN 160 MG TABLET PO SCH (09:00)
--- NOTE | 2020-01-02 15:59 | PN ---
Subjective - Date and Time Seen Date: 01/02/20 Time: 15:59 Subjective Narrative: Patient states that she feels slightly better today than she did yesterday but is slightly nauseous. Her vital signs are stable though and she had no acute events overnight. Her sodium came up to 125. Objective - Review of Systems Generalized/Overall Review: Reports: Weakness. Denies: Chills, Fever EENTM: Reports: Throat Pain Respiratory: Reports: Cough. Denies: Shortness of Breath Cardiac: Reports: No Symptoms Reported Abdominal: Reports: Nausea. Denies: Vomiting, Abdominal Pain Genitourinary Symptoms: Reports: No Symptoms Reported Musculoskeletal Complaints: Reports: No Symptoms Reported Neurological: Reports: No Symptoms Reported Skin: Reports: No Symptoms Reported Endocrine: Reports: No Symptoms Reported - Vitals Vitals: Last Vital Signs Temp 36.7 C 01/02/20 14:00 Pulse 61 01/02/20 14:00 Resp 18 01/02/20 14:00 BP 147/82 01/02/20 14:00 Pulse Ox 99 01/02/20 14:00 - Abnormal Lab Findings Abnormal Lab Findings: Abnormal Lab Results 01/02/20 Range/Units 07:00 Sodium 125 L (132-142) mmol/L Plasma Sodium 126 L (130-142) mmol/L Chloride 93 L (97-106) mmol/L Carbon Dioxide 21.9 L (24-32.6) mmol/L Anion Gap 14.0 H (6.8-13.8) mmol/L Est GFR (Non-Af Amer) 48 L (60-130) mL/min BUN/Creatinine Ratio 7.5 L (9.0-21.6) Random Glucose 147 H (70-110) mg/dL - Exam Constitutional: Present: Alert, Oriented x3, Cooperative, Elderly, Obese ENT Exam: Present: normal ENT inspection, hearing grossly normal Neck: Present: non-tender, supple Respiratory: Present: lungs clear, normal breath sounds Cardiovascular/Chest: Present: regular rate, rhythm, no murmur Abdomen: Present: soft, nontender, nondistended Appearance: Present: appropriate appearance, appropriate insight Eye contact: Present: cooperative, good eye contact Thoughts: Present: normal thought pattern, normal mood /affect Assessment/Plan Plan Narrative: Patient status changed to inpatient due to her hyponatremia. She will require more than 1 day stay to correct this. Her sodium was up to 125 this morning, repeat BMP in the morning. Continue current treatment plan. No salt tablets at this time. Patient with history of psychiatric issues, home medications restarted. Patient currently feels fine and is acting appropriate. Patient vital signs are stable and she is afebrile. Patient started on general diet. SCDs for DVT prophylaxis. Encourage ambulation. Repeat lab work in the morning will determine course of treatment plan in the future, will adjust as needed. Nurse to call with questions or concerns. - Problems/Diagnosis (1) Hyponatremia Problem: Acute (2) Generalized weakness Problem: Acute (3) Pharyngitis Problem: Acute (4) Major depression Problem: Chronic Qualifiers: Major depression recurrence: recurrent Active/Remission status: currently active Major depression episode severity: moderate Qualified Code(s): F33.1 - Major depressive disorder, recurrent, moderate (5) Borderline personality disorder Problem: Chronic
[2020-01-03] MEDS: NORMAL SALINE 1,000 ML IV SCH (02:34)
[2020-01-03] MEDS: ACETAMINOPHEN 500 MG TABLET PO PRN (06:00)
[2020-01-03 07:27] LABS: Anion Gap 15.4 mmol/L (6.8-13.8); BUN/Creatinine Ratio 8.7 (9.0-21.6); Calcium * 9.1 mg/dL (7.9-10.9); Carbon Dioxide 23.2 mmol/L (24-32.6); Estimated Creat Clear 25.2; Potassium 3.6 mmol/L (3.4-4.6)
[2020-01-03] MEDS: LEVOTHYROXINE SODIUM 175 MCG TABLET PO SCH (07:29)
[2020-01-03] MEDS: LOSARTAN POTASSIUM 50 MG TABLET PO SCH (08:23)
[2020-01-03] MEDS: METOPROLOL TARTRATE 100 MG TABLET PO SCH (08:23)
[2020-01-03] MEDS: busPIRone HCL 5 MG TABLET PO SCH (08:23)
[2020-01-03] MEDS: amLODIPine BESYLATE 10 MG TABLET PO SCH (08:23)
[2020-01-03] MEDS: FLUoxetine HCL 20 MG CAPSULE PO SCH (08:24)
[2020-01-03] MEDS: ALPRAZolam 1 MG TABLET PO PRN (08:55)
[2020-01-03] MEDS ORDERED: NORMAL SALINE 1,000 ML IV PRN (09:15)
--- NOTE | 2020-01-03 09:23 | DS ---
(1) Hyponatremia Problem: Resolved (2) Generalized weakness Problem: Resolved (3) Pharyngitis Problem: Acute (4) Major depression Problem: Chronic Qualifiers: Major depression recurrence: recurrent Active/Remission status: currently active Major depression episode severity: moderate Qualified Code(s): F33.1 - Major depressive disorder, recurrent, moderate (5) Borderline personality disorder Problem: Chronic Date of Discharge:: 01/03/20 Hospital Course: 64-year-old female admitted to the hospital for hyponatremia. Original symptoms included generalized weakness and not feeling well. She did have a sore throat and was rapid strep was negative. [place] was negative. Chest x-ray was negative for acute cardiopulmonary process. She had a mild elevated white count at 11.6 with no shift. Sodium was initially 120. On discharge was 132. She is feeling much better. Vital signs are stable though she is a little hypertensive at 160 systolically, she will follow-up with her PCP in regards to this. Otherwise she is stable and ready for discharge. No changes to her chronic medications. Patient has a primary care in [place], she like to follow-up with a female physician here at [facility] if possible Procedures Performed: none Results and Findings: Pending Mircobiology Results 01/01/20 13:03 Blood Blood Culture - Preliminary NO GROWTH 24 HOURS Lab Pending Results 01/01/20 13:03: WBC 11.6 H, RBC 4.48, Hgb 13.7, Hct 40.5, MCV 90.4, MCH 30.6, MCHC 33.8, RDW 13.6, Plt Count 435, MPV 9.5, Immature Gran % (Auto) 0.30, Immature Gran # (Auto) 0.04 H, Neutrophils % 60.6, Lymphocytes % 31.8, Monocytes % 4.5, Eosinophils % 2.4, Basophils % 0.4, Nucleated RBC % 0.0, Neutrophils # 7.0 H, Lymphocytes # 3.69 H, Monocytes # 0.5, Eosinophils # 0.3, Absolute Basophils 0.1 01/01/20 13:03: Sodium 120 L, Plasma Sodium 121 L, Potassium 4.2, Chloride 85 L, Carbon Dioxide 23.6 L, Anion Gap 15.6 H, BUN 8, Creatinine 1.16, Est GFR (Non-Af Amer) 50 L, BUN/Creatinine Ratio 6.9 L, Random Glucose 132 H, Calcium 9.6, Calcium Adj for Albumin 8.6, Total Bilirubin 0.5, AST 82 H, ALT 42, Alkaline Phosphatase 78, Troponin I Less than 0.017, Total Protein 8.4 H, Albumin 4.8 01/01/20 13:03: Lactic Acid, Venous 1.6 01/01/20 13:03: Monoscreen Negative 01/01/20 13:03: B-Natriuretic Peptide 187 01/01/20 13:23: Group A Strep Rapid Negative 01/01/20 14:04: Urine Color Yellow, Urine Appearance Clear, Urine pH 7.5, Ur Specific [place] 1.015, Urine Protein 30 H, Urine Glucose (UA) Negative, Urine Ketones Negative, Urine Blood 25 H, Urine Nitrate Negative, Urine Bilirubin Negative, Prot Sulfosalicylic Acd Negative, Urine Urobilinogen Normal, Ur Leukocyte Esterase Negative, Urine RBC 0-5, Urine WBC None seen, Ur Epithelial Cells 0-5, Urine Bacteria None seen, Urine Culture Comments No culture indicated 01/02/20 07:00: Sodium 125 L, Plasma Sodium 126 L, Potassium 3.9, Chloride 93 L, Carbon Dioxide 21.9 L, Anion Gap 14.0 H, BUN 9, Creatinine 1.20, Est GFR (Non-Af Amer) 48 L, BUN/Creatinine Ratio 7.5 L, Random Glucose 147 H, Calcium 9.2 01/03/20 07:05: Sodium 132, Plasma Sodium 132, Potassium 3.6, Chloride 97, Carbon Dioxide 23.2 L, Anion Gap 15.4 H, BUN 11, Creatinine 1.26, Est GFR (Non- Af Amer) 45 L, BUN/Creatinine Ratio 8.7 L, Random Glucose 105, Calcium 9.1 Discharge Location: Home Disposition: Home self-care Condition: Stable Discharge Activity: Activity as tolerated Discharge Diet: General/regular food Additional Patient Instructions (free text): TCM appointment at discharge. Complete Home Medications List: Complete Home Medication List: metoprolol tartrate 100 mg tablet 100 mg PO BIDWM #60 tab 03/22/18 buspirone 15 mg tablet 15 mg PO TID #90 tab 10/21/19 zolpidem 10 mg tablet 10 mg PO HS PRN #30 tab 10/21/19 propranolol 20 mg tablet 20 mg PO TID PRN #90 tab 11/21/19 fluoxetine 20 mg capsule 60 mg PO DAILY #90 cap 12/19/19 Alprazolam 0.5 mg PO QID PRN 01/01/20 Amlodipine Besylate 10 mg PO DAILY 01/01/20 Levothyroxine Sodium [Synthroid] 175 mcg PO DAILY 01/01/20 Potassium Chloride [Klor-Con M20] 20 meq PO DAILY 01/01/20 Valsartan 320 mg PO DAILY 01/01/20
[2020-01-03 12:47] VITALS: BP 146/91
== END 2020-01-03 12:15 | disposition home or self-care (01) | DRG 641 ==
LOC: ER 11:22 → MS 11:22
PROVIDERS: ADMIT Family Medicine; ATTEND Family Medicine
DX: R53.1 Weakness; F60.3 Borderline personality disorder; J02.9 Acute pharyngitis, unspecified; E86.0 Dehydration; F33.1 Major depressive disorder, recurrent, moderate; J44.9 Chronic obstructive pulmonary disease, unspecified; Z23 Encounter for immunization; E87.1 Hypo-osmolality and hyponatremia